=== PATIENT | male | born 1990 | race Caucasian/White ===

== ENCOUNTER 2018-04-26 09:04 | Emergency (ER) | payer MEDICAID ==
[~2018-04-26] VITALS: Ht 172.7 cm; Wt 70.0 kg
[2018-04-26] MEDS ORDERED: ketorolac tromethamine 15mg/ml inj. IM ONE (09:40)
[2018-04-26 10:11] VITALS: BP 124/75
== END 2018-04-26 10:15 | disposition home or self-care (01) ==
LOC: ER 09:05
DX: R07.89 Other chest pain (principal)
CPT/HCPCS: 93005; 96372; 99283; J1885